=== PATIENT | male | born 1955 | race Caucasian/White ===

== ENCOUNTER 2021-12-27 11:33 | Outpatient (REF) | payer MEDICARE, SELFPAY ==
[2021-12-27 13:51] LABS: MANUAL DIFF FLAG NO
[2021-12-27 13:56] LABS: Basophils Absolute Auto 0.1 X10*3/uL (0.0-0.2); Basophils Percent Auto 0.7 % (0-2); Eosinophils Absolute Auto 0.3 X10*3/uL (0.0-0.4); Eosinophils Percent Auto 3.8 % (0-4); Hematocrit 44.6 % (42.0-52.0); Hemoglobin 14.8 g/dl (14.0-18.0); Imm Gran Abs Auto 0.03 X10*3/uL (0.00-0.03); Imm Gran Pct Auto 0.4 % (0.0-0.4); Lymphocytes Absolute Auto 1.8 X10*3/uL (1.2-4.9); Lymphocytes Percent Auto 21.9 % (20-40); Mean Corpuscular HGB Conc 33.2 g/dl (31.0-36.0); Mean Corpuscular Hemoglobin 29.9 pg (27.0-33.0); Mean Corpuscular Volume 90.1 fL (80.0-98.0); Mean Platelet Volume 10.5 fL (9.4-12.4); Monocytes Absolute Auto 0.7 X10*3/uL (0.1-1.2); Monocytes Percent Auto 8.4 % (2-11); Neutrophils Absolute Auto 5.4 x10*3/uL (2.0-8.3); Neutrophils Percent Auto 64.8 % (45-73); Platelet Count 345 X10*3/uL (160-400); Red Blood Count 4.95 X10*6/uL (4.60-5.80); Red Cell Distribution Width 12.7 % (11.0-16.0); White Blood Count 8.3 X10*3/uL (4.8-10.8)
[2021-12-27 14:17] LABS: Alanine Aminotransferase 13 U/L (0-40); Albumin Level 4.5 g/dL (3.5-5.0); Alkaline Phosphatase 124 U/L (39-117); Anion Gap 16 (12-20); Aspartate Amino Transferase 15 U/L (5-37); Bilirubin Total 0.6 mg/dL (0.0-1.0); Blood Urea Nitrogen 12 mg/dL (9-16); Calcium 9.8 mg/dL (8.4-10.2); Carbon Dioxide 28 mmol/L (22-29); Chloride 102 mmol/L (96-108); Cholesterol 242 mg/dL; Estimated Glomerular Filt Rate > 60; Glucose Fasting 100 mg/dL (60-99); HDL Cholesterol 36 mg/dL; LDL Cholesterol Calculated 153 mg/dl; Potassium 4.8 mmol/L (3.3-5.1); Sodium 141 mmol/L (135-145); Total Protein 7.2 g/dL (6.5-8.0); Triglycerides 268 mg/dL
[2021-12-27 14:28] LABS: PSA,Total (Free>4and<10) 0.64 ng/mL (0.00-4.00)
== END 2021-12-27 11:34 | disposition home or self-care (01) ==
LOC: HO.HMGCLDS 11:33
PROVIDERS: PCP Internal Medicine; Visit Provider Internal Medicine
DX: Z00.00 Encounter for general adult medical examination without abnormal findings (principal); Z12.5 Encounter for screening for malignant neoplasm of prostate; I10 Essential (primary) hypertension
CPT/HCPCS: 36415; 80053; 80061; 84153; 85025

== ENCOUNTER 2022-12-28 10:18 | Outpatient (AMB) | payer MEDICARE, SELFPAY ==
[2022-12-28 10:25] VITALS: BP 132/80; PULSE 74; O2SAT 97; BMI 28.4
--- NOTE | 2022-12-28 10:25 | MHC.PC.OV ---
Vital Signs 12/28/22 10:25 Height 5 ft 10 in Weight 198 lb BMI 28.4 BP 132/80 Blood Pressure Location Lt brachial Position Sitting Pulse 74 Pulse Source Pulse Oximeter Pulse Oximetry (%) 97 Oxygen Delivery Method Room Air Intake Visit Reasons: Annual Physical Intake Note: Pt is here today for PE. Allergies No Known Allergies Allergy (Verified 12/28/22 10:34) Medication List - Last Reconciled 12/28/22 by Riri Grace MD amlodipine-benazepril 5-20 mg 1 cap PO DAILY Tobacco use date assessed: 12/28/22 Fall risk assessment: No Falls in past year Last assessed Fall Risk: 12/28/22 Dental Screening Dental Screen Date: 12/28/22 Did you have a dental visit in the last 12 months?: Yes Did you have a dental problem in the last 6 months where you did not have access to dental care?: No Was dental information given to patient?: Patient has dentist HPI Annual Physical HPI Details Pt presents for PE. HTN is stable. 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 Social History Housing: House Patient Tobacco Use Status: Never used Tobacco e-Cigarette/Vaping Use: Never Used Current occupational status: retired Cognitive needs: No Hearing needs: No Vision needs: Yes Questionnaire PHQ-9 Over the last 2 weeks, how often have you been bothered by any of the following problems? 1. Little interest or pleasure in doing things: not at all 2. Feeling down, depressed, or hopeless: not at all 3. Trouble falling or staying asleep, or sleeping too much: not at all 4. Feeling tired or having little energy: not at all 5. Poor appetite or overeating: not at all 6. Feeling bad about yourself - or that you are a failure or have let yourself or your family down: not at all 7. Trouble concentrating on things, such as reading the newspaper or watching television: not at all 8. Moving or speaking so slowly that other people could have noticed. Or the opposite - being so fidgety or restless that you have been moving around a lot more than usual: not at all 9. Thoughts that you would be better off or of hurting yourself in some way: not at all Total score: 0 Depression Screening Interpretation: Negative Depression Screening Done: Yes Source: Developed by Drs. Earl Gooden, Nikole Gamboa, Justin Borja and colleagues, with an educational matheus from [employer] Thrive Questionnaire Date Thrive assessed: 12/28/22 I am a: Patient What is your living situation today?: I have a steady place to live Within the past 12 months, did the food you bought not last and you didn't have the money to get more?: Never true Within the past 12 months, did you worry whether your food would run out before you got money to buy more?: Never true Do you have trouble paying for medicines?: No Do you have trouble getting transportation to medical appointments?: No Do you have trouble paying your heating and electricity bill?: No Do you have trouble taking care of your child, family member or friend?: No Do you have trouble with day-to-day activities such as bathing, preparing meals, shopping, managing finances, etc.?: No Are you currently unemployed and looking for a job?: No Are you interested in more education?: No Please select the resources that you would like help with: None Currently or been in a relationship where the following occur: no concerns reported AUDIT C Alcohol Use Questionnaire (AUDIT-C) 1. How often do you have a drink containing alcohol?: Never 3. How often do you have six or more drinks on one occasion?: Never Total Score: 0 SERGIO-7 AMB Questionnaire SERGIO-7 Date SERGIO - 7 assessed: 12/28/22 Feeling nervous, anxious, or on edge: 0 = Not at all Not being able to stop or control worryin = Not at all Worrying too much about different things: 0 = Not at all Trouble relaxin = Not at all Being so restless that it is hard to sit still: 0 = Not at all Becoming easily annoyed or irritable: 0 = Not at all Feeling afraid as if something awful might happen: 0 = Not at all Total SERGIO-7 score (0-4 normal; 5-9 mild; 10-14 moderate; 15-21 severe): 0 Source: Developed by Drs. Earl Gooden, Nikole Gamboa, Justin Borja and colleagues, with an educational matheus from [employer] Review of Systems Const All systems reviewed & are unremarkable except as noted in HPI and below Reports no additional complaints Eyes Reports no additional complaints ENT Reports no additional complaints Card Reports no additional complaints Resp Reports no additional complaints GI Reports no additional complaints Reports no additional complaints Physical exam (Primary Care) Vital Signs: Last Vital Signs Pulse 74 12/28/22 10:25 BP 132/80 12/28/22 10:25 Pulse Ox 97 12/28/22 10:25 Oxygen Delivery Method Room Air 12/28/22 10:25 BMI result Body Mass Index 28.4 Tobacco/Smoking Status: Tobacco use Status Tobacco use date assessed 12/28/22 12/28/22 10:37 Patient Tobacco Use Status Never used Tobacco 12/28/22 10:37 e-Cigarette/Vaping Use Never Used 12/28/22 10:25 PHQ-9: PHQ-9 Score PHQ-9: Total score 0 12/28/22 10:56 Depression Screening Interpretation: Negative Thrive Assessment: Date of Thrive Assessment Date Thrive assessed 12/28/22 12/28/22 10:38 Currently or been in a relationship where the following occur: no concerns reported Const General: no acute distress HENMT Head: Yes normal to inspection Face and sinus: Yes normal facial exam Mouth: Normal oral and palatal mucosa present Throat: Yes posterior oropharynx normal Eyes General: appearance normal, both eyes and all related structures Neck Neck: Yes supple Resp Effort & Inspection: normal respiratory effort Auscultation: clear to auscultation bilaterally Cardio Rhythm: regular rhythm Heart sounds: S1 normal heart sound present and S2 normal heart sound present GI Inspection: Yes normal to inspection Palpation (GI): Soft to palpation Percussion: Yes normal to percussion Auscultation: normal bowel sounds Assessment and Plan Assessment & Plan (1) Annual physical exam: Code(s): Z00.00 - Encounter for general adult medical examination without abnormal findings Plan: Well-balanced diet regular exercise discussed with the patient. He will have a fasting blood work today. Patient declined colonoscopy Cologuard will be sent (2) Hyperlipidemia: Comment: Patient refused statin Code(s): E78.5 - Hyperlipidemia, unspecified Plan: Low-cholesterol diet regular physical activity discussed with the patient (3) HTN (hypertension): Code(s): I10 - Essential (primary) hypertension Plan: Continue current medications and return in 1 year for physical (4) Colonoscopy refused: Comment: 2017, cologuard ordered 12/31 Code(s): Z53.20 - Procedure and treatment not carried out because of patient's decision for unspecified reasons Orders: Orders Complete Blood Count Auto Diff Today E78.5 - Hyperlipidemia, unspecified, I10 - Essential (primary) hypertension, Z00.00 - Encounter for general adult medical examination without abnormal findings, Z53.20 - Procedure and treatment not carried out because of patient's decision for unspecified reasons Comprehensive [place]. Panel Fast Today E78.5 - Hyperlipidemia, unspecified, I10 - Essential (primary) hypertension, Z00.00 - Encounter for general adult medical examination without abnormal findings, Z53.20 - Procedure and treatment not carried out because of patient's decision for unspecified reasons Lipid Panel Today E78.5 - Hyperlipidemia, unspecified, I10 - Essential (primary) hypertension, Z00.00 - Encounter for general adult medical examination without abnormal findings, Z53.20 - Procedure and treatment not carried out because of patient's decision for unspecified reasons PSA,Total (Free>4and<10) Today E78.5 - Hyperlipidemia, unspecified, I10 - Essential (primary) hypertension, Z00.00 - Encounter for general adult medical examination without abnormal findings, Z53.20 - Procedure and treatment not carried out because of patient's decision for unspecified reasons UA w Microscopic Today E78.5 - Hyperlipidemia, unspecified, I10 - Essential (primary) hypertension, Z00.00 - Encounter for general adult medical examination without abnormal findings, Z53.20 - Procedure and treatment not carried out because of patient's decision for unspecified reasons Referrals Cologuard Test E78.5 - Hyperlipidemia, unspecified, I10 - Essential (primary) hypertension, Z00.00 - Encounter for general adult medical examination without abnormal findings, Z12.11 - Encounter for screening for malignant neoplasm of colon, Z12.12 - Encounter for screening for malignant neoplasm of rectum, Z53.20 - Procedure and treatment not carried out because of patient's decision for unspecified reasons Medications: Refilled amlodipine-benazepril 5-20 mg 1 cap PO DAILY 90 caps 3RF Coding Level of Care Code Est Pt Prev Care >65y(27546) Diagnoses Annual physical exam Z00.00 Hyperlipidemia E78.5 HTN (hypertension) I10 Colonoscopy refused Z53.20
== END 2022-12-28 11:15 | disposition home or self-care (01) ==
LOC: HO.HMGC 10:18
PROVIDERS: PCP Internal Medicine; Visit Provider Internal Medicine
DX: Z00.00 Encounter for general adult medical examination without abnormal findings (principal); E78.5 Hyperlipidemia, unspecified; I10 Essential (primary) hypertension; Z53.20 Procedure and treatment not carried out because of patient's decision for unspecified reasons
CPT/HCPCS: 99397

== ENCOUNTER 2022-12-28 11:15 | Outpatient (REF) | payer MEDICARE, SELFPAY ==
[2022-12-28 13:25] LABS: Appearance Urine Clear; Color Urine Dark Yellow; Glucose Urine UA Negative (Negative); Leukocyte Esterase Urine Negative (Negative); Nitrite Urine Negative (Negative); PH 5.5 (5.0-9.0); Specific Gravity - Urine 1.025 (1.005-1.025); Urine Blood Negative (Negative); Urine Ketones Negative (Negative); Urine Protein Trace mg/dL (Neg-Trace)
[2022-12-28 13:32] LABS: Bacteria Urine None Seen (None Seen); RBC Urine 0-2 /HPF (0-2); Squamous Epithelial Cell Urine 0-2 /HPF (0-2); WBC Urine 0-5 /HPF (0-5)
[2022-12-28 13:38] LABS: MANUAL DIFF FLAG NO
[2022-12-28 13:48] LABS: Basophils Absolute Auto 0.1 X10*3/uL (0.0-0.2); Basophils Percent Auto 0.8 % (0-2); Eosinophils Absolute Auto 0.2 X10*3/uL (0.0-0.4); Hematocrit 44.2 % (42.0-52.0); Hemoglobin 14.5 g/dl (14.0-18.0); Imm Gran Abs Auto 0.02 X10*3/uL (0.00-0.03); Imm Gran Pct Auto 0.3 % (0.0-0.4); Lymphocytes Absolute Auto 1.6 X10*3/uL (1.2-4.9); Lymphocytes Percent Auto 19.4 % (20-40); Mean Corpuscular HGB Conc 32.8 g/dl (31.0-36.0); Mean Corpuscular Hemoglobin 29.9 pg (27.0-33.0); Mean Corpuscular Volume 91.1 fL (80.0-98.0); Mean Platelet Volume 10.9 fL (9.4-12.4); Monocytes Absolute Auto 0.7 X10*3/uL (0.1-1.2); Monocytes Percent Auto 9.3 % (2-11); Neutrophils Absolute Auto 5.5 x10*3/uL (2.0-8.3); Neutrophils Percent Auto 68.2 % (45-73); Platelet Count 301 X10*3/uL (160-400); Red Blood Count 4.85 X10*6/uL (4.60-5.80); Red Cell Distribution Width 12.5 % (11.0-16.0)
[2022-12-28 14:09] LABS: Alanine Aminotransferase 14 U/L (0-40); Albumin Level 4.3 g/dL (3.5-5.0); Alkaline Phosphatase 110 U/L (39-117); Anion Gap 16 (12-20); Aspartate Amino Transferase 16 U/L (5-37); Bilirubin Total 0.6 mg/dL (0.0-1.0); Blood Urea Nitrogen 18 mg/dL (9-16); Calcium 9.8 mg/dL (8.4-10.2); Carbon Dioxide 26 mmol/L (22-29); Chloride 102 mmol/L (96-108); Cholesterol 235 mg/dL (<200); Estimated Glomerular Filt Rate > 60; Glucose Fasting 96 mg/dL (60-99); HDL Cholesterol 39 mg/dL (>40); LDL Cholesterol Calculated 154 mg/dL (<100); Potassium 4.6 mmol/L (3.3-5.1); Sodium 139 mmol/L (135-145); Total Protein 7.4 g/dL (6.5-8.0); Triglycerides 210 mg/dL (<150)
[2022-12-28 14:16] LABS: PSA,Total (Free>4and<10) 0.68 ng/mL (0.00-4.00)
== END 2022-12-28 11:16 | disposition home or self-care (01) ==
LOC: HO.HMGCLDS 11:15
PROVIDERS: PCP Internal Medicine; Visit Provider Internal Medicine
DX: Z00.00 Encounter for general adult medical examination without abnormal findings (principal); E78.5 Hyperlipidemia, unspecified; I10 Essential (primary) hypertension; Z12.5 Encounter for screening for malignant neoplasm of prostate
CPT/HCPCS: 36415; 80053; 80061; 81001; 84153; 85025

== ENCOUNTER 2024-01-21 11:17 | Outpatient (REF) | payer MEDICARE, SELFPAY ==
[2024-01-21 16:16] LABS: MANUAL DIFF FLAG NO
[2024-01-21 16:23] LABS: Basophils Absolute Auto 0.1 X10*3/uL (0.0-0.2); Basophils Percent Auto 0.8 % (0-2); Eosinophils Absolute Auto 0.2 X10*3/uL (0.0-0.4); Eosinophils Percent Auto 2.6 % (0-4); Hemoglobin 14.5 g/dl (14.0-18.0); Imm Gran Abs Auto 0.02 X10*3/uL (0.00-0.03); Imm Gran Pct Auto 0.2 % (0.0-0.4); Lymphocytes Absolute Auto 1.6 X10*3/uL (1.2-4.9); Lymphocytes Percent Auto 19.5 % (20-40); Mean Corpuscular Volume 90.9 fL (80.0-98.0); Mean Platelet Volume 10.5 fL (9.4-12.4); Monocytes Absolute Auto 0.7 X10*3/uL (0.1-1.2); Monocytes Percent Auto 7.7 % (2-11); Neutrophils Absolute Auto 5.8 x10*3/uL (2.0-8.3); Neutrophils Percent Auto 69.2 % (45-73); Platelet Count 312 X10*3/uL (160-400); Red Blood Count 4.84 X10*6/uL (4.60-5.80); Red Cell Distribution Width 12.8 % (11.0-16.0); White Blood Count 8.4 X10*3/uL (4.8-10.8)
[2024-01-21 16:48] LABS: Appearance Urine Clear; Color Urine Yellow; Glucose Urine UA Negative (Negative); Leukocyte Esterase Urine Negative (Negative); Nitrite Urine Negative (Negative); Urine Blood Negative (Negative); Urine Ketones Negative (Negative); Urine Protein Trace mg/dL (Neg-Trace)
[2024-01-21 16:48] LABS: Alanine Aminotransferase 16 U/L (0-40); Albumin Level 4.4 g/dL (3.5-5.0); Alkaline Phosphatase 99 U/L (39-117); Anion Gap 15 (12-20); Aspartate Amino Transferase 26 U/L (5-37); Bilirubin Total 0.5 mg/dL (0.0-1.0); Blood Urea Nitrogen 12 mg/dL (9-16); Calcium 9.7 mg/dL (8.4-10.2); Carbon Dioxide 27 mmol/L (22-29); Chloride 103 mmol/L (96-108); Cholesterol 183 mg/dL (<200); Estimated Glomerular Filt Rate > 60; Glucose Fasting 97 mg/dL (60-99); HDL Cholesterol 41 mg/dL (>40); LDL Cholesterol Calculated 106 mg/dL (<100); Potassium 4.6 mmol/L (3.3-5.1); Sodium 140 mmol/L (135-145); Total Protein 7.4 g/dL (6.5-8.0); Triglycerides 184 mg/dL (<150)
[2024-01-21 16:51] LABS: Bacteria Urine None Seen (None Seen); Hyaline Casts Urine 0-2 /LPF (0-2); RBC Urine 0-2 /HPF (0-2); Squamous Epithelial Cell Urine 0-2 /HPF (0-2); WBC Urine 0-5 /HPF (0-5)
[2024-01-21 16:53] LABS: PSA,Total (Free>4and<10) 0.75 ng/mL (0.00-4.00)
== END 2024-01-21 11:18 | disposition home or self-care (01) ==
LOC: HO.HMGCLDS 11:17
PROVIDERS: PCP Internal Medicine; Visit Provider Internal Medicine
DX: Z00.00 Encounter for general adult medical examination without abnormal findings (principal); Z12.5 Encounter for screening for malignant neoplasm of prostate; I10 Essential (primary) hypertension; E78.5 Hyperlipidemia, unspecified; Z79.899 Other long term (current) drug therapy
CPT/HCPCS: 36415; 80053; 80061; 81001; 84153; 85025; 96127; 99397

== ENCOUNTER 2024-01-21 11:17 | Outpatient (AMB) | payer MEDICARE, SELFPAY ==
[2024-01-21 11:57] VITALS: BP 138/86; PULSE 72; O2SAT 96; BMI 29.4
--- NOTE | 2024-01-21 11:57 | MHC.PC.OV ---
Vital Signs 01/21/24 11:57 Height 5 ft 10 in Weight 205 lb BMI 29.4 BP 138/86 Blood Pressure Location Lt brachial Position Sitting Pulse 72 Pulse Source Pulse Oximeter Pulse Oximetry (%) 96 Oxygen Delivery Method Room Air Intake Visit Reasons: Annual Physical - see comments Intake Note: Pt is here today for PE. Allergies No Known Allergies Allergy (Verified 01/21/24 11:59) Medication List - Last Reconciled 01/21/24 by Riri Grace MD amlodipine-benazepril 5-20 mg 1 cap PO DAILY pravastatin 40 mg PO DAILY Tobacco use date assessed: 01/21/24 Fall risk assessment: No Falls in past year Last assessed Fall Risk: 01/21/24 Dental Screening Dental Screen Date: 01/21/24 Did you have a dental visit in the last 12 months?: Yes Did you have a dental problem in the last 6 months where you did not have access to dental care?: No Was dental information given to patient?: Patient has dentist HPI Annual Physical - see comments HPI Details Patient presents for physical [facility] Medical History (Updated 01/21/24 @ 12:50 by Riri Grace MD) Colonoscopy refused Lumbar radiculopathy OA (osteoarthritis) of hip Hyperlipidemia HTN (hypertension) Surgical History 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 Social History Housing: House Patient Tobacco Use Status: Never used Tobacco e-Cigarette/Vaping Use: Never Used service: No Current occupational status: retired Cognitive needs: No Hearing needs: No Vision needs: Yes Questionnaire PHQ-9 Over the last 2 weeks, how often have you been bothered by any of the following problems? 1. Little interest or pleasure in doing things: not at all 2. Feeling down, depressed, or hopeless: not at all 3. Trouble falling or staying asleep, or sleeping too much: not at all 4. Feeling tired or having little energy: not at all 5. Poor appetite or overeating: not at all 6. Feeling bad about yourself - or that you are a failure or have let yourself or your family down: not at all 7. Trouble concentrating on things, such as reading the newspaper or watching television: not at all 8. Moving or speaking so slowly that other people could have noticed. Or the opposite - being so fidgety or restless that you have been moving around a lot more than usual: not at all 9. Thoughts that you would be better off or of hurting yourself in some way: not at all Total score: 0 Depression Screening Interpretation: Negative Depression Screening Done: Yes 24243 - PHQ-9 Billing: Yes Source: Developed by Drs. Earl Gooden, Nikole Gamboa, Justin Borja and colleagues, with an educational matheus from [employer]. Thrive Questionnaire Date Thrive assessed: 01/21/24 I am a: Patient What is your living situation today?: I have a steady place to live Within the past 12 months, did the food you bought not last and you didn't have the money to get more?: Never true Within the past 12 months, did you worry whether your food would run out before you got money to buy more?: Never true Do you have trouble paying for medicines?: No Do you have trouble getting transportation to medical appointments?: No Do you have trouble paying your heating and electricity bill?: No Do you have trouble taking care of your child, family member or friend?: No Do you have trouble with day-to-day activities such as bathing, preparing meals, shopping, managing finances, etc.?: No Are you currently unemployed and looking for a job?: No Are you interested in more education?: No Please select the resources that you would like help with: None THRIVE Score: 0 AUDIT C Alcohol Use Questionnaire (AUDIT-C) 1. How often do you have a drink containing alcohol?: Never 3. How often do you have six or more drinks on one occasion?: Never Total Score: 0 SERGIO-7 AMB Questionnaire SERGIO-7 Date SERGIO - 7 assessed: 01/21/24 Feeling nervous, anxious, or on edge: 0 = Not at all Not being able to stop or control worryin = Not at all Worrying too much about different things: 0 = Not at all Trouble relaxin = Not at all Being so restless that it is hard to sit still: 0 = Not at all Becoming easily annoyed or irritable: 0 = Not at all Feeling afraid as if something awful might happen: 0 = Not at all Total SERGIO-7 score (0-4 normal; 5-9 mild; 10-14 moderate; 15-21 severe): 0 Source: Developed by Drs. Earl Gooden, Nikole Gamboa, Justin Borja and colleagues, with an educational matheus from [employer]. SERGIO-7 Assessment Billing SERGIO-7 Assessment Tool: SERGIO-7 Assessment 89782 Review of Systems Const All systems reviewed & are unremarkable except as noted in HPI and below ENT Reports no additional complaints Card Reports no additional complaints Resp Reports no additional complaints GI Reports no additional complaints Reports no additional complaints Musc Reports no additional complaints Physical exam (Primary Care) Vital Signs: Last Vital Signs Pulse 72 01/21/24 11:57 BP 138/86 01/21/24 11:57 Pulse Ox 96 01/21/24 11:57 Oxygen Delivery Method Room Air 01/21/24 11:57 BMI result Body Mass Index 29.4 Tobacco/Smoking Status: Tobacco use Status Tobacco use date assessed 01/21/24 01/21/24 12:01 Patient Tobacco Use Status Never used Tobacco 01/21/24 12:01 e-Cigarette/Vaping Use Never Used 01/21/24 12:01 PHQ-9: PHQ-9 Score PHQ-9: Total score 0 01/21/24 12:01 Depression Screening Interpretation: Negative Thrive Assessment: Date of Thrive Assessment Date Thrive assessed 01/21/24 01/21/24 12:01 Const General: no acute distress HENMT Ears: hearing grossly normal bilaterally Face and sinus: Yes normal facial exam Mouth: Normal oral and palatal mucosa present Throat: Yes posterior oropharynx normal Eyes General: appearance normal, both eyes and all related structures Neck Neck: Yes no lymphadenopathy and Yes supple Resp Effort & Inspection: normal respiratory effort Auscultation: clear to auscultation bilaterally Cardio Rhythm: regular rhythm Heart sounds: S1 normal heart sound present and S2 normal heart sound present GI Inspection: Yes normal to inspection Palpation (GI): Soft to palpation Percussion: Yes normal to percussion Auscultation: normal bowel sounds Coding Level of Care Code Est Pt Prev Care >65y(97858) Diagnoses Hyperlipidemia E78.5 HTN (hypertension) I10 Annual physical exam Z00.00 Colonoscopy refused Z53.20 Additional Codes SERGIO-7 Assessment Billing - SERGIO-7 Assessment Tool: SERGIO-7 Assessment 87823 ([id number]) PHQ-9 - 53414 - PHQ-9 Billing: Yes ([id number]) Assessment & Plan Assessment & Plan (1) Hyperlipidemia: Code(s): E78.5 - Hyperlipidemia, unspecified Category: Medical Plan: Continue pravastatin check blood work today (2) HTN (hypertension): Code(s): I10 - Essential (primary) hypertension Category: Medical Plan: Continue current medications, regular physical activity weight loss discussed with the patient. (3) Annual physical exam: Code(s): Z00.00 - Encounter for general adult medical examination without abnormal findings Category: Medical Plan: Well-balanced diet regular physical activity weight loss discussed with the patient he refused colonoscopy and Cologuard (4) Colonoscopy refused: Comment: 2017, cologuard refused 01/2024 Code(s): Z53.20 - Procedure and treatment not carried out because of patient's decision for unspecified reasons Category: Medical Plan: Patient refused Orders: Orders Complete Blood Count Auto Diff Today E78.5 - Hyperlipidemia, unspecified, I10 - Essential (primary) hypertension PSA,Total (Free>4and<10) Today E78.5 - Hyperlipidemia, unspecified, I10 - Essential (primary) hypertension UA w Microscopic Today E78.5 - Hyperlipidemia, unspecified, I10 - Essential (primary) hypertension Comprehensive [place]. Panel Fast Today E78.5 - Hyperlipidemia, unspecified, I10 - Essential (primary) hypertension Lipid Panel Today E78.5 - Hyperlipidemia, unspecified, I10 - Essential (primary) hypertension Medications: Refilled amlodipine-benazepril 5-20 mg 1 cap PO DAILY 90 caps 3RF pravastatin 40 mg PO DAILY 90 tabs 3RF
== END 2024-01-21 12:51 | disposition home or self-care (01) ==
PROVIDERS: PCP Internal Medicine; Visit Provider Internal Medicine
DX: E78.5 Hyperlipidemia, unspecified (principal); I10 Essential (primary) hypertension; Z00.00 Encounter for general adult medical examination without abnormal findings; Z53.20 Procedure and treatment not carried out because of patient's decision for unspecified reasons

== ENCOUNTER 2025-01-22 09:58 | Outpatient (AMB) | payer MEDICARE, SELFPAY ==
--- NOTE | 2025-01-22 10:06 | MHC.PC.OV ---
Vital Signs 01/22/25 10:13 Height 5 ft 10 in Weight 208 lb BMI 29.8 BP 130/80 Blood Pressure Location Lt brachial Position Sitting Respiration 16 Pulse 67 Pulse Source Pulse Oximeter Temp 97.9 F Temp Source Oral Pulse Oximetry (%) 97 Oxygen Delivery Method Room Air Intake Visit Reasons: Annual PE - see comments Intake Note: Pt is here today for PE. Allergies No Known Allergies Allergy (Verified 01/22/25 10:19) Medication List - Last Reconciled 01/22/25 by Riri Grace MD amlodipine-benazepril 5-20 mg 1 cap PO DAILY pravastatin 40 mg PO DAILY Tobacco use date assessed: 01/22/25 Fall risk assessment: No Falls in past year Last assessed Fall Risk: 01/22/25 Dental Screening Dental Screen Date: 01/22/25 Did you have a dental visit in the last 12 months?: Yes Did you have a dental problem in the last 6 months where you did not have access to dental care?: No Was dental information given to patient?: Patient has dentist HPI Annual PE - see comments HPI Details Patient presents for PE [facility] Medical History Colonoscopy refused Lumbar radiculopathy OA (osteoarthritis) of hip Hyperlipidemia HTN (hypertension) Surgical History 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 Social History Housing: House Patient Tobacco Use Status: Never used Tobacco e-Cigarette/Vaping Use: Never Used service: No Current occupational status: retired Cognitive needs: No Hearing needs: No Vision needs: Yes Questionnaire PHQ-9 Over the last 2 weeks, how often have you been bothered by any of the following problems? 1. Little interest or pleasure in doing things: not at all 2. Feeling down, depressed, or hopeless: not at all 3. Trouble falling or staying asleep, or sleeping too much: not at all 4. Feeling tired or having little energy: not at all 5. Poor appetite or overeating: not at all 6. Feeling bad about yourself - or that you are a failure or have let yourself or your family down: not at all 7. Trouble concentrating on things, such as reading the newspaper or watching television: not at all 8. Moving or speaking so slowly that other people could have noticed. Or the opposite - being so fidgety or restless that you have been moving around a lot more than usual: not at all 9. Thoughts that you would be better off or of hurting yourself in some way: not at all Total score: 0 Depression Screening Interpretation: Negative Depression Screening Done: Yes 45984 - PHQ-9 Billing: Yes Source: Developed by Drs. Earl Gooden, Nikole Gamboa, Justin Borja and colleagues, with an educational matheus from [employer]. Thrive Questionnaire Date Thrive assessed: 01/22/25 I am a: Patient What is your living situation today?: I have a steady place to live Within the past 12 months, did the food you bought not last and you didn't have the money to get more?: Never true Within the past 12 months, did you worry whether your food would run out before you got money to buy more?: Never true Do you have trouble paying for medicines?: No Do you have trouble getting transportation to medical appointments?: No Do you have trouble paying your heating and electricity bill?: No Do you have trouble taking care of your child, family member or friend?: No Do you have trouble with day-to-day activities such as bathing, preparing meals, shopping, managing finances, etc.?: No Are you currently unemployed and looking for a job?: No Are you interested in more education?: No Please select the resources that you would like help with: None THRIVE Score: 0 SERGIO-7 AMB Questionnaire SERGIO-7 Date SERGIO - 7 assessed: 01/22/25 Feeling nervous, anxious, or on edge: 0 = Not at all Not being able to stop or control worryin = Not at all Worrying too much about different things: 0 = Not at all Trouble relaxin = Not at all Being so restless that it is hard to sit still: 0 = Not at all Becoming easily annoyed or irritable: 0 = Not at all Feeling afraid as if something awful might happen: 0 = Not at all Total SERGIO-7 score (0-4 normal; 5-9 mild; 10-14 moderate; 15-21 severe): 0 Source: Developed by Drs. Earl Gooden, Nikole Gamboa, Justin Borja and colleagues, with an educational matheus from [employer]. SERGIO-7 Assessment Billing SERGIO-7 Assessment Tool: SERGIO-7 Assessment 69782 Review of Systems Const All systems reviewed & are unremarkable except as noted in HPI and below Eyes Reports no additional complaints ENT Reports no additional complaints Card Reports no additional complaints Resp Reports no additional complaints GI Reports no additional complaints Reports no additional complaints Physical exam (Primary Care) Vital Signs: Last Vital Signs Temp 97.9 F 01/22/25 10:13 Pulse 67 01/22/25 10:13 Resp 16 01/22/25 10:13 BP 130/80 01/22/25 10:13 Pulse Ox 97 01/22/25 10:13 Oxygen Delivery Method Room Air 01/22/25 10:13 BMI result Body Mass Index 29.8 Tobacco/Smoking Status: Tobacco use Status Tobacco use date assessed 01/22/25 01/22/25 10:21 Patient Tobacco Use Status Never used Tobacco 01/22/25 10:06 e-Cigarette/Vaping Use Never Used 01/22/25 10:06 PHQ-9: PHQ-9 Score PHQ-9: Total score 0 01/22/25 10:21 Depression Screening Interpretation: Negative Thrive Assessment: Date of Thrive Assessment Date Thrive assessed 01/22/25 01/22/25 10:21 Const General: no acute distress HENMT Head: Yes normal to inspection Ears: TM's normal bilaterally Face and sinus: Yes normal facial exam Eyes General: appearance normal, both eyes and all related structures Neck Neck: Yes supple Resp Effort & Inspection: normal respiratory effort Auscultation: clear to auscultation bilaterally Cardio Rhythm: regular rhythm Heart sounds: S1 normal heart sound present and S2 normal heart sound present GI Inspection: Yes normal to inspection Palpation (GI): Soft to palpation Percussion: Yes normal to percussion Auscultation: normal bowel sounds Coding Level of Care Code Est Pt Prev Care >65y(52877) Diagnoses HTN (hypertension) I10 Hyperlipidemia E78.5 Annual physical exam Z00.00 Additional Codes SERGIO-7 Assessment Billing - SERGIO-7 Assessment Tool: SERGIO-7 Assessment 04385 ([id number]) PHQ-9 - 25862 - PHQ-9 Billing: Yes ([id number]) Assessment & Plan Assessment & Plan (1) HTN (hypertension): Code(s): I10 - Essential (primary) hypertension Category: Medical Plan: Continue current medications (2) Hyperlipidemia: Code(s): E78.5 - Hyperlipidemia, unspecified Category: Medical Plan: Continue statin (3) Annual physical exam: Comment: Patient declined colon cancer screening including colonoscopy and Cologuard 01/2025, patient refused Pneumovax vaccination 01/2025 Code(s): Z00.00 - Encounter for general adult medical examination without abnormal findings Category: Medical Plan: Well-balanced diet regular physical activity discussed with the patient Orders: Orders Complete Blood Count Auto Diff Today E78.5 - Hyperlipidemia, unspecified, I10 - Essential (primary) hypertension, Z00.00 - Encounter for general adult medical examination without abnormal findings PSA,Total (Free>4and<10) Today E78.5 - Hyperlipidemia, unspecified, I10 - Essential (primary) hypertension, Z00.00 - Encounter for general adult medical examination without abnormal findings Lipid Panel Today E78.5 - Hyperlipidemia, unspecified, I10 - Essential (primary) hypertension, Z00.00 - Encounter for general adult medical examination without abnormal findings Comprehensive [place]. Panel Fast Today E78.5 - Hyperlipidemia, unspecified, I10 - Essential (primary) hypertension, Z00.00 - Encounter for general adult medical examination without abnormal findings UA w Microscopic Today E78.5 - Hyperlipidemia, unspecified, I10 - Essential (primary) hypertension, Z00.00 - Encounter for general adult medical examination without abnormal findings Medications: Refilled amlodipine-benazepril 5-20 mg 1 cap PO DAILY 90 caps 3RF pravastatin 40 mg PO DAILY 90 tabs 3RF
[2025-01-22 10:13] VITALS: BP 130/80; PULSE 67; RESP 16; TEMP 36.6; O2SAT 97; BMI 29.8
--- OUTSIDE RECORDS SUMMARY | 2025-01-22 11:41 | XMS_ITS | Encounter Summary ---
Author Organization [facility] Address [address] [place] [address] Care Team Providers Care Tile Designer Name Role Phone Unknown Primary Care Provider [phone] Riri Grace MD Primary Care Provider Riri Grace MD Primary Care Provider Jeffrey White MD Unavailable Derrell Tenorio MD Unavailable Encounter Details Date Type Department Care Team (Late st Contact Info) Description 11/21/2016 Scanned Document [facility] [place] [address] Provider, Generic Social History Tobacco Use Types Packs/Day Years Used Date Smoking Tobacco: Never Alcohol Use Standard Drinks/Week Comments Not Asked 0 (1 standard drink = 0.6 oz pur e alcohol) Sex and Gender Information Value Date Recorded Sex Assigned at Not on file Legal Sex Male 5:10 PM EDT Gender Identity Not on file Sexual Orientation Not on file documented as of this encounter Plan of Treatment Not on file documented as of this encounter Visit Diagnoses Not on filedocumented in this encounter Care Teams Tile Designer Relationship Specialty Start Date End Date Unknown Unknow Provider Address PCP - General 08/20/16 12/30/16 Riri Grace MD [address] [place] [address] PCP - General 12/31/16 04/11/17 Riri Grace MD [address] [place] [address] PCP - General 04/17/17 Jeffrey White MD [address] [address] Surgery, Neurosurgery 12/13/20 12/13/20 Derrell Tenorio MD [address] [place] [address] Physician Surgery, Orthopedic 12/13/20 documented as of this encounter
--- OUTSIDE RECORDS SUMMARY | 2025-01-22 11:41 | XMS_ITS | Encounter Summary ---
Author Organization [facility] Address [address] [place] [address] Care Team Providers Care Architecture Analyst Name Role Phone Unknown Primary Care Provider [phone] Riri Grace MD Primary Care Provider Riri Grace MD Primary Care Provider [phone] Jeffrey White MD Unavailable Derrell Tenorio MD Unavailable Encounter Details Date Type Department Care Team (Late st Contact Info) Description 11/22/2016 Scanned Document [facility] Neurosurgery [place] 35 [facility] 5 [place] [address] Jeffrey White MD [address] [place] [address] Social History Tobacco Use Types Packs/Day Years [...] on filedocumented in this encounter Care Teams Architecture Analyst Relationship Specialty Start Date End Date Unknown Unknow Provider Address PCP - General 08/20/16 12/30/16 Riri Grace MD [address] [place] [address] PCP - General 12/31/16 04/11/17 Riri Grace MD [address] [place] [address] PCP - General 04/17/17 Jeffrey White MD [address] [address] Surgery, Neurosurgery 12/13/20 12/13/20 Derrell Tenorio MD [address] [place] [id number] Physician Surgery, Orthopedic 12/13/20 documented as of this encounter
--- OUTSIDE RECORDS SUMMARY | 2025-01-22 11:41 | XMS_ITS | Clinical Summary ---
Author Organization [facility] Address [address] [place] [address] Care Team Providers Care Dye Padder Operator Name Role Phone Riri Grace MD Primary Care Provider Derrell Tenorio MD Unavailable Allergies No known active allergies Medications amLODIPine-radha zepril (LOTREL 5-20) 5-20 MG per capsule Take 1 capsule by mouth every morning. Active cholecalciferol (CHOLECALCIFERO L) 25 MCG (1000 UT) tablet Take 1,000 Units by mouth every morning. Active multivitamin (multivitamin) Tab tablet Take 1 tablet by mouth daily. Active aspirin enteric coated (ECOTRIN LOW STRENGTH) 81 MG EC tabletIndicatio ns:Arthritis of right hip Take 1 tablet (81 mg total) by mouth every 12 (twelve) hours around the clock. 56 tablet 2 Active acetaminophen (TYLENOL) 325 MG tabletIndicatio ns:Arthritis of right hip Take 3 tablets (975 mg total) by mouth every 8 (eight) hours around the clock. 189 tablet 2 Active docusate sodium (COLACE) 100 MG capsuleIndicati ons:Arthritis of right hip Take 1 capsule (100 mg total) by mouth 2 (two) times a day. 28 capsule 2 Active HYDROmorphone (DILAUDID) 2 MG tabletIndicatio ns:Arthritis of right hip Take 1-2 tablets (2-4 mg total) by mouth Every 3 (three) to 4 (four) hours as needed for moderate pain or severe pain. Max Daily Amount: 32 mg 40 tablet 2 Active methocarbamol (ROBAXIN) 750 MG tabletIndicatio ns:Arthritis of right hip Take 1 tablet (750 mg total) by mouth 4 (four) times a day. 84 tablet 2 Active PANTOprazole (PROTONIX) 40 MG EC tabletIndicatio ns:Arthritis of right hip Take 1 tablet (40 mg total) by mouth daily. Do not start before June 17, 2021. 30 tablet 2 Active polyethylene glycol (miraLAx) 17 g packetIndicatio ns:Arthritis of right hip Take 1 packet (17 g total) by mouth daily as needed for constipation (if not BM by postop day #1). 10 packet 2 Active senna-docusate (SENNA-S) 8.6-50 MGIndications:A rthritis of right hip Take 2 tablets by mouth nightly. 28 tablet 2 Active Active Problems Problem Noted Date Diagnosed Date Arthritis of right hip 06/15/2021 Arthritis of left hip 12/29/2020 Radiculopathy of lumbar region 01/01/2017 DDD (degenerative disc disease), lumbar 01/02/20 17 Lumbar herniated disc 01/01/2017 Immunizations Immunization Administration Dates Next Due Influenza Inactivated/Split Preservative Free IM 06/15/2021() Family History Medical History Relation Name Comments Sudden Cardiac Brother 3 Stroke Father Dementia Sister No Known Problems Son 1 No Known Problems Son 2 Relation Name Status Comments Brother 1 Brother 2 Brother 3 Brother 4 Father (Age 76) Mother (Age 76) Sister Son 1 Alive Son 2 Alive Social History Tobacco Use Types Packs/Day Years Used Date Smoking Tobacco: Never Smokeless Tobacco: Never Alcohol Use Standard Drinks/Week Comments Not Currently 0 (1 standard drink = 0.6 oz pur e alcohol) Sex and Gender Information Value Date Recorded Sex Assigned at Not on file Legal Sex Male 5:10 PM EDT Gender Identity Not on file Sexual Orientation Not on file Last Filed Vital Signs Vital Sign Reading Time Taken Comments Blood Pressure 150/73 06/16/2021 2:21 PM EDT Pulse 72 06/16/2021 2:21 PM EDT Temperature 36.8 C (98.2 F) 06/16/2021 2:21 PM EDT Respiratory Rate 20 06/16/2021 2:21 PM EDT Oxygen Saturation 96% 06/16/2021 2:21 PM EDT Inhaled Oxygen Concentration - - Weight 92.1 kg (203 lb) 06/15/2021 11:35 AM EDT Height 172.7 cm (5' 8 ) 06/15/2021 11:35 AM EDT Body Mass Index 30.87 06/15/2021 11:35 AM EDT Plan of Treatment Health Maintenance Due Date Last Done Comments Advance Care Planning 1955 Hepatitis C Virus Screening 1955 DTaP/Tdap/Td Vaccines (1 - Tdap) 1973 Colonoscopy 1999 Pneumococcal Vaccines 50+ (1 of 1 - PCV) 2004 RSV Vaccine 50 years and old er and Patients (1 - Risk 50-74 years 1-dose series) 2004 Zoster (Shingles) Vaccine (1 of 2) 2004 Influenza Vaccine 10/09/2024 COVID-19 Vaccine (1 - 2023-2 5 season) 2024 Hepatitis B Vaccines Aged Out No long er eligible based on patient's age to complete this topic Medical Devices Implanted Type Area Human Resources Specialist Device Identifier Shelf Expiration Date Model / Serial / Lot [id number] Shell Acetabular 58mm Hip Ch Tritanium Trdnt 2 F Sterl - [id number] Implanted:Qty : 1 on 12/29/2020 by Derrell Tenorio MD at [facility] Joint Prosthesis Left: Hip BENNY REJI [id number] 04/24/2025 702-04-58 F / / [id number] 1236-2-852 Insert Acetabular 52mm Hip Rstr X3 Adm Mdm Mbl Br Hip 8.9mm - [id number] Implanted:Qty : 1 on 12/29/2020 by Derrell Tenorio MD at [facility] Joint Prosthesis Left: Hip BENNY REJI [id number] 03/15/2025 1236-2-85 2 / / [id number] 626-00-46f Liner Acetabular Mdm F 46mm Cocr Hip - [id number] Implanted:Qty : 1 on 12/29/2020 by Derrell Tenorio MD at [facility] Joint Prosthesis Left: Hip BENNY REJI [id number] 03/30/2025 626-00-46 F / / [id number] Stem Femoral 114mm Pf Acld 2 V40 Purefix Ti 127d 7 50mm High - [id number] Implanted:Qty : 1 on 12/29/2020 by Derrell Tenorio MD at [facility] Joint Prosthesis Left: Hip BENNY REJI [id number] 11/22/2025 8157-1608 / / [id number] 6570-0-228 Head Femoral +4mm Offset Taper 28mm Hip Blx D V40 Sterl - [id number] Implanted:Qty : 1 on 12/29/2020 by Derrell Tenorio MD at [facility] Joint Prosthesis Left: Hip BENNY REJI [id number] 11/23/2023 6570-0-22 8 / / [id number] 6260-9-328 Head Femoral +8mm Offset Taper 28mm Hip Prim Cocr V40 Lfit - [id number] Implanted:Qty : 1 on 06/15/2021 by Derrell Tenorio MD at [facility] Joint Prosthesis Right: Hip BENNY REJI [id number] 01/26/2025 6260-9-32 8 / / [id number] 626-00-46f Liner Acetabular Mdm F 46mm Cocr Hip - [id number] Implanted:Qty : 1 on 06/15/2021 by Derrell Tenorio MD at [facility] Joint Prosthesis Right: Hip BENNY REJI [id number] 11/02/2025 626-00-46 F / / [id number] Insert Acetabular 52mm Hip Rstr X3 Adm Mdm Mbl Br Hip 8.9mm - [id number] Implanted:Qty : 1 on 06/15/2021 by Derrell Tenorio MD at [facility] Joint Prosthesis Right: Hip BENNY REJI [id number] 03/17/2025 1236-2-85 2 / / [id number] Shell Acetabular 58mm Hip Ch Tritanium Trdnt 2 F Sterl - [id number] Implanted:Qty : 1 on 06/15/2021 by Derrell Tenorio MD at [facility] Joint Prosthesis Right: Hip BENNY REJI [id number] 02/12/2026 7058 F / / [id number] 7246-0850 Stem Femoral 114mm Pf Acld 2 V40 Purefix Ti 127d 7 50mm High - [id number] Implanted:Qty : 1 on 06/15/2021 by Derrell Tenorio MD at [facility] Joint Prosthesis Right: Hip BENNY REJI [id number] 01/17/20266720-093734-3465 / / [id number] Insurance [facility] MEDICARE [facility] MEDICARE Advance Directives * Full Code (Latest Code Status on File) Date Activated Date Inactivated Comments 06/15/2021 11:39 AM * Full Code Date Activated Date Inactivated Comments 06/15/2021 7:10 AM 06/15/2021 11:39 AM * Full Code Date Activated Date Inactivated Comments 12/29/2020 11:59 AM 06/15/2021 6:50 AM * Full Code Date Activated Date Inactivated Comments 12/29/2020 8:08 AM 12/29/2020 11:59 AM Care Teams Dye Padder Operator Relationship Specialty Start Date End Date Riri Grace MD [address] [facility] [place] [facility] [place] [address] PCP - General 04/17/17 Derrell Tenoroi MD [address] [place] [address] Physician Surgery, Orthopedic 12/13/20
--- OUTSIDE RECORDS SUMMARY | 2025-01-22 11:42 | XMS_ITS | Encounter Summary ---
Author Organization [facility] Address [address] [place] [address] Care Team Providers Care Score Caller Name Role Phone Riri Grace MD Primary Care Provider [phone] Jeffrey White MD Unavailable Derrell Tenorio MD Unavailable Encounter Details Date Type Department Care Team (Late st Contact Info) Description 04/19/2017 Scanned Document [facility] Neurosurgery [place] [address] [facility] [address] [place] [address] Jeffrey White MD 35 [facility] 5 [place] [address] Social History Tobacco Use Types Packs/Day Years [...] on filedocumented in this encounter Care Teams Score Caller Relationship Specialty Start Date End Date Riri Grace MD [address] [place] [address] MARIA LUISA HAYDEN [address] PCP - General 04/17/17 Jeffrey White MD [address] [address] Surgery, Neurosurgery 12/13/20 12/13/20 Derrell Tenorio MD [address] [place] [address] Physician Surgery, Orthopedic 12/13/20 documented as of this encounter
--- OUTSIDE RECORDS SUMMARY | 2025-01-22 11:42 | XMS_ITS | Encounter Summary ---
Author Organization [facility] Address [address] [place] [address] Care Team Providers Care Medical Insurance Verifier Name Role Phone Unknown Primary Care Provider [phone] -[phone] Riri Grace MD Primary Care Provider Riri Grace MD Primary Care Provider [phone] Jeffrey White MD Unavailable Derrell Tenorio MD Unavailable Encounter Details Date Type Department Care Team (Late st Contact Info) Description 11/22/2016 Scanned Document [facility] Neurosurgery [address] [address] Leticia Powell [place] [address] [place] [address] Social History Tobacco Use Types Packs/Day Years [...] on filedocumented in this encounter Care Teams Medical Insurance Verifier Relationship Specialty Start Date End Date Unknown Unknow Provider Address PCP - General 08/20/16 12/30/16 Riri Grace MD [address] [place] [address] PCP - General 12/31/16 04/11/17 Riri Grace MD [address] [place] [address] PCP - General 04/17/17 Jeffrey White MD [address] [address] Surgery, Neurosurgery 12/13/20 12/13/20 Derrell Tenorio MD [address] [place] [address] Physician Surgery, Orthopedic 12/13/20 documented as of this encounter
--- OUTSIDE RECORDS SUMMARY | 2025-01-22 11:42 | XMS_ITS | Clinical Summary ---
Author Organization [facility] Address [address] [place] [address] Care Team Providers Care Sap Pp Consultant Name Role Phone Unavailable Primary Care Provider Unavailabl e Social History Tobacco Use Types Packs/Day Years Used Date Smoking Tobacco: Never Assessed Sex and Gender Information Value Date Recorded Sex Assigned at Not on file Legal Sex Male 7:55 AM EST Gender Identity Not on file Sexual Orientation Not on file Plan of Treatment Health Maintenance Due Date Last Done Comments DTaP,Tdap,and Td Vaccines (1 - Tdap) 1973 Pneumococcal Vaccine: 50+ Ye ars (1 of 1 - PCV) 2004 Zoster Vaccines (1 of 2) 2004 Depression Screening 03/11/2024 COVID-19 Vaccine (1 - 2024-2 6 season) 2024 Influenza Vaccine (#1) 2024 RSV Immunization Adult Patie nts (1 - 1-dose 75+ series) 2029 HIB Vaccines Aged Out No longer eligi ble based on patient's age to complete this topic HPV Vaccines Aged Out No longer eligi ble based on patient's age to complete this topic Hepatitis A Vaccines Aged Out No long er eligible based on patient's age to complete this topic Hepatitis B Vaccines Aged Out No long er eligible based on patient's age to complete this topic IPV Vaccines Aged Out No longer eligi ble based on patient's age to complete this topic MMR Vaccines Aged Out No longer eligi ble based on patient's age to complete this topic Meningococcal ACWY Vaccine Aged Out N o longer eligible based on patient's age to complete this topic Meningococcal B Vaccine Aged Out No l onger eligible based on patient's age to complete this topic RSV Immunization Patients Un scott 20 months Aged Out No longer eligible b ased on patient's age to complete this topic Varicella Vaccines Aged Out No longer eligible based on patient's age to complete this topic
--- OUTSIDE RECORDS SUMMARY | 2025-01-22 11:42 | XMS_ITS | Encounter Summary ---
Author Organization [facility] Address [address] [place] [address] Care Team Providers Care Labor Utilization Superintendent Name Role Phone Riri Grace MD Primary Care Provider [phone] Jeffrey White MD Unavailable [phone] Derrell Tenorio MD Unavailable Encounter Details Date Type Department Care Team (Late st Contact Info) Description 09/06/[address] [facility] Neurosurgery [place] 35 [facility] [address] [place] [address] Jeffrey White MD 35 [facility] 5 [place] [address] Social History Tobacco Use Types Packs/Day Years [...] on filedocumented in this encounter Care Teams Labor Utilization Superintendent Relationship Specialty Start Date End Date Riri Grace MD [address] [place] [address] MARIA LUISA HAYDEN [address] PCP - General 04/17/17 Jeffrey White MD [address] [address] Surgery, Neurosurgery 12/13/20 12/13/20 Derrell Tenorio MD [address] [place] [address] Physician Surgery, Orthopedic 12/13/20 documented as of this encounter
--- OUTSIDE RECORDS SUMMARY | 2025-01-22 11:42 | XMS_ITS | Encounter Summary ---
Author Organization [facility] Address [address] [place] [address] Care Team Providers Care Education Department Chair Name Role Phone Riri Grace MD Primary Care Provider [phone] Jeffrey White MD Unavailable [phone] Derrell Tenorio MD Unavailable Encounter Details Date Type Department Care Team (Late st Contact Info) Description 05/13/2017 Scanned Document [facility] Neurosurgery [place] 35 [facility] [address] [place] [address] Jeffrey White MD 35 [facility] 5 [place] [address] Social History Tobacco Use Types Packs/Day Years [...] on filedocumented in this encounter Care Teams Education Department Chair Relationship Specialty Start Date End Date Riri Grace MD [address] [place] [address] MARIA LUISA HAYDEN [address] PCP - General 04/17/17 Jeffrey White MD [address] [address] Surgery, Neurosurgery 12/13/20 12/13/20 Derrell Tenorio MD [address] [place] [address] Physician Surgery, Orthopedic 12/13/20 documented as of this encounter
--- OUTSIDE RECORDS SUMMARY | 2025-01-22 11:42 | XMS_ITS | Encounter Summary ---
Author Organization [facility] Address [address] [place] [address] Care Team Providers Care Service Center Manager Name Role Phone Riri Grace MD Primary Care Provider [phone] Jeffrey White MD Unavailable [phone] Derrell Tenorio MD Unavailable Encounter Details Date Type Department Care Team (Late st Contact Info) Description 06/10/2017 Scanned Document [facility] Neurosurgery [place] 35 [facility] [address] [place] [address] Jeffrey White MD 35 [facility] 5 [place] [address] Social History Tobacco Use Types Packs/Day Years [...] on filedocumented in this encounter Care Teams Service Center Manager Relationship Specialty Start Date End Date Riri Grace MD [address] [place] [address] MARIA LUISA HAYDEN [address] PCP - General 04/17/17 Jeffrey White MD [address] [address] Surgery, Neurosurgery 12/13/20 12/13/20 Derrell Tenorio MD [address] [place] [address] Physician Surgery, Orthopedic 12/13/20 documented as of this encounter
--- OUTSIDE RECORDS SUMMARY | 2025-01-22 11:42 | XMS_ITS | Encounter Summary ---
Author Organization [facility] Address [address] [place] [address] Care Team Providers Care College [employer] Registrar Name Role Phone Riri Grace MD Primary Care Provider [phone] Jeffrey White MD Unavailable [phone] Derrell Tenorio MD Unavailable Encounter Details Date Type Department Care Team (Late st Contact Info) Description 06/07/2017 Scanned Document [facility] Neurosurgery [address] [address] Provider, Generic Social History Tobacco Use Types [...] on filedocumented in this encounter Care Teams College [employer] Registrar Relationship Specialty Start Date End Date Riri Grace MD [facility] TREVA RENOLOW LIZA WHITESIDEShivMARIA LUISA [address] PCP - General 04/17/17 Jeffrey White MD [address] [address] Surgery, Neurosurgery 12/13/20 12/13/20 Derrell Tenorio MD [address] [place] [address] Physician Surgery, Orthopedic 12/13/20 documented as of this encounter
--- OUTSIDE RECORDS SUMMARY | 2025-01-22 11:42 | XMS_ITS | Encounter Summary ---
Author Organization [facility] Address [address] [place] [address] Care Team Providers Care Vat Tender Name Role Phone Riri Grace MD Primary Care Provider [phone] Jeffrey White MD Unavailable Derrell Tenorio MD Unavailable Encounter Details Date Type Department Care Team (Late st Contact Info) Description 04/15/2017 Scanned Document [facility] Neurosurgery [place] 35 [facility] [address] [place] [address] Jeffrey White MD 35 [facility] 5 [place] [address] Social History Tobacco Use Types Packs/Day Years [...] on filedocumented in this encounter Care Teams Vat Tender Relationship Specialty Start Date End Date Riri Grace MD [address] [place] [address] MARIA LUISA HAYDEN [address] PCP - General 04/17/17 Jeffrey White MD [address] [address] Surgery, Neurosurgery 12/13/20 12/13/20 Derrell Tenorio MD [address] [place] [address] Physician Surgery, Orthopedic 12/13/20 documented as of this encounter
--- OUTSIDE RECORDS SUMMARY | 2025-01-22 11:43 | XMS_ITS | Encounter Summary ---
Author Organization [facility] Address [address] [place] [address] Care Team Providers Care Chain Repairer Name Role Phone Unknown Primary Care Provider [phone] Riri Grace MD Primary Care Provider Riri Grace MD Primary Care Provider [phone] Jeffrey White MD Unavailable Derrell Tenorio MD Unavailable Encounter Details Date Type Department Care Team (Late st Contact Info) Description 09/14/2016 Scanned Document [facility] Neurosurgery [place] 35 [facility] 5 [place] [address] Jeffrey White MD 35 [place] [address] Social History Tobacco Use Types Packs/Day Years [...] on filedocumented in this encounter Care Teams Chain Repairer Relationship Specialty Start Date End Date Unknown Unknow Provider Address PCP - General 08/20/16 12/30/16 Riri Grace MD [address] [place] [address] PCP - General 12/31/16 04/11/17 Riri Grace MD [address] [place] [address] PCP - General 04/17/17 Jeffrey White MD [address] [address] Surgery, Neurosurgery 12/13/20 12/13/20 Derrell Tenorio MD [address] [place] [id number] Physician Surgery, Orthopedic 12/13/20 documented as of this encounter
--- OUTSIDE RECORDS SUMMARY | 2025-01-22 11:43 | XMS_ITS | Clinical Summary ---
Author Organization [facility] Address [address] [place] [address] Care Team Providers Care Technical Support Agent Name Role Phone Unavailable Primary Care Provider Unavailabl e Allergies No known active allergies Medications Medication Sig Dispensed Refills Start Date End Date Status lisinopril (PRINIVIL,ZESTRIL) tablet 5 mg Take 1 tablet by mouth daily. 0 11/13/2016 Active acetaminophen (TYLENOL) 325 MG tablet Take 650 mg by mouth 3 (three) times a day as needed for pain. 0 Active ibuprofen (ADVIL,MOTRIN) 200 MG tablet Take 600 mg by mouth every 6 (six) hours as needed for pain. 0 Active aspirin EC 81 MG tablet Take 81 mg by mouth every other day. 0 Active Active Problems No known active problems Family History Medical History Relation Name Comments Arthritis Father Heart disease Father Arthritis Mother Heart disease Mother Relation Name Status Comments Father Mother Social History Tobacco Use Types Packs/Day Years Used Date Smoking Tobacco: Never Smokeless Tobacco: Never Alcohol Use Standard Drinks/Week Comments No 0 (1 standard drink = 0.6 oz pur e alcohol) Sex and Gender Information Value Date Recorded Sex Assigned at Not on file Gender Identity Not on file Sexual Orientation Not on file Last Filed Vital Signs Vital Sign Reading Time Taken Comments Blood Pressure 159/101 01/30/2017 10:17 AM EST Pulse 70 01/30/2017 11:13 AM EST Temperature 36.6 C (97.8 F) 01/30/2017 10:17 AM EST Respiratory Rate 20 01/30/2017 11:13 AM EST Oxygen Saturation 99% 01/30/2017 11:13 AM EST Inhaled Oxygen Concentration - - Weight 89.4 kg (197 lb) 01/30/2017 10:17 AM EST Height 180.3 cm (5' 11 ) 01/30/2017 10:17 AM EST Body Mass Index 27.48 01/30/2017 10:17 AM EST Plan of Treatment Health Maintenance Due Date Last Done Comments Hepatitis C Screening 1955 COVID-19 Vaccine (#1) 1954 Depression Screening 1966 Preventative Health Evaluation 1972 DTap / Tdap / Td (1 - Tdap) 1973 Colon Cancer Screening (Colonoscopy) 1999 Shingrix-Zoster Vaccine (1 of 2) 2004 Fall Risk Assessment 2019 Pneumococcal Vaccine (1 of 1 - PCV) 2019 Influenza Vaccine (#1) 2024 RSV Adult > 60+ Yrs or Pregn ant (1 - 1-dose 75+ series) 2029 Hepatitis B Vaccines Aged Out No long er eligible based on patient's age to complete this topic RSV Ped < 20 months Aged Out No longe r eligible based on patient's age to complete this topic
== END 2025-01-22 10:50 | disposition home or self-care (01) ==
PROVIDERS: PCP Internal Medicine; Visit Provider Internal Medicine
DX: Z00.00 Encounter for general adult medical examination without abnormal findings (principal); I10 Essential (primary) hypertension; E78.5 Hyperlipidemia, unspecified

== ENCOUNTER 2025-01-22 09:58 | Outpatient (REF) | payer MEDICARE, SELFPAY ==
[2025-01-22 13:10] LABS: Appearance Urine Clear; Glucose Urine UA Negative (Negative); PH 6.0 (5.0-9.0); Specific Gravity - Urine 1.020 (1.005-1.025)
[2025-01-22 13:45] LABS: MANUAL DIFF FLAG NO
[2025-01-22 13:49] LABS: Hematocrit 44.1 % (42.0-52.0); Hemoglobin 14.4 g/dl (14.0-18.0); Imm Gran Abs Auto 0.03 X10*3/uL (0.00-0.03); Imm Gran Pct Auto 0.4 % (0.0-0.4); Lymphocytes Absolute Auto 1.5 X10*3/uL (1.2-4.9); Mean Corpuscular HGB Conc 32.7 g/dl (31.0-36.0); Mean Corpuscular Hemoglobin 29.5 pg (27.0-33.0); Mean Corpuscular Volume 90.4 fL (80.0-98.0); NRBC Abs Auto 0.000 X10*3/uL (0.0-0.012); NRBC Pct Auto 0.0 /100WBC (0.0-0.2); Platelet Count 272 X10*3/uL (160-400); Red Blood Count 4.88 X10*6/uL (4.60-5.80); White Blood Count 7.9 X10*3/uL (4.8-10.8)
[2025-01-22 14:12] LABS: Alanine Aminotransferase 16 U/L (0-40); Albumin Level 4.5 g/dL (3.5-5.0); Alkaline Phosphatase 103 U/L (39-117); Anion Gap 12 (12-20); Aspartate Amino Transferase 28 U/L (5-37); Blood Urea Nitrogen 12 mg/dL (9-16); Calcium 9.3 mg/dL (8.4-10.2); Carbon Dioxide 27 mmol/L (22-29); Chloride 105 mmol/L (96-108); Cholesterol 216 mg/dL (<200); Estimated Glomerular Filt Rate > 60; HDL Cholesterol 37 mg/dL (>40); Potassium 4.4 mmol/L (3.3-5.1); Sodium 140 mmol/L (135-145); Total Protein 7.2 g/dL (6.5-8.0); Triglycerides 183 mg/dL (<150)
[2025-01-22 14:29] LABS: PSA,Total (Free>4and<10) 0.96 ng/mL (0.00-4.00)
== END 2025-01-22 09:59 | disposition home or self-care (01) ==
LOC: HO.HMGCLDS 09:58
PROVIDERS: PCP Internal Medicine; Visit Provider Internal Medicine
DX: Z00.00 Encounter for general adult medical examination without abnormal findings (principal); I10 Essential (primary) hypertension; E78.5 Hyperlipidemia, unspecified; Z12.5 Encounter for screening for malignant neoplasm of prostate; Z13.31 Encounter for screening for depression; Z13.39 Encounter for screening examination for other mental health and behavioral disorders
CPT/HCPCS: 36415; 80053; 80061; 81001; 84153; 85025; 96127; 99397